=== PATIENT | female | born 1935 | race American Indian/Alaskan Native ===

== ENCOUNTER 2018-12-25 09:18 | Day surgery (SDC) | payer MEDICARE ==
--- NOTE | 2018-12-25 07:51 | Anesthesia Day of Surgery ---
Anesthesia Day of Surgery - Day of Surgery Patient Examined: Yes Patient H&P Reviewed: Yes Patient is NPO: Yes
--- NOTE | 2018-12-25 07:51 | Anesthesia Consultation ---
Anesthesia Consult and Med Hx Date of service: 12/25/18 - Pre-Operative Health Status ASA Pre-Surgery Classification: ASA4 Proposed Anesthetic Plan: MAC - Cardiovascular System Hx Hypertension: Yes Hx Coronary Artery Disease: Yes - Central Nervous System CVA: Yes
[~2018-12-25 09:18] MED LIST: NACL 0.9% 1000 ML 1,000 ML IV SCH
[2018-12-25] MEDS ORDERED: DIPRIVAN 10 MG/ML IV ONE ×2 (10:46)
--- NOTE | 2018-12-25 11:09 | Short Stay Summary ---
Short Stay Documentation Date of service: 12/25/18 Narrative H&P: Pt presents for surveillance colonoscopy. Pt with h/o colon polyps on colonoscopy over 5 years ago. no new gi complaints. - History H&P: obtained from office Past Medical History: other (CHF, HTN; rest per office note) Past Surgical History: Other (per office note) Social history: no significant social history - Allergies and Medications Current Medications: Allergies No Known Allergies Allergy (Verified 12/19/18 12:27) Home Medications Medication Instructions Recorded Confirmed Last Taken Type Allopurinol 100 mg PO DAILY 12/19/18 12/19/18 Unknown History Clopidogrel 75 mg PO DAILY 12/19/18 12/19/18 Unknown History Escitalopram Oxalate 20 mg PO DAILY 12/19/18 12/19/18 Unknown History Fish Oil 1 tab PO DAILY 12/19/18 12/19/18 Unknown History Furosemide 40 mg PO DAILY 12/19/18 12/19/18 Unknown History Lisinopril 2.5 mg PO DAILY 12/19/18 12/19/18 Unknown History Metoprolol 50 mg PO BID 12/19/18 12/19/18 Unknown History Nifedipine 60 mg PO DAILY 12/19/18 12/19/18 Unknown History Omeprazole 40 mg PO DAILY 12/19/18 12/19/18 Unknown History Vitamin D3 2,000 UNIT CAP 1 cap PO DAILY 12/19/18 12/19/18 Unknown History Active Medications Sodium Chloride (Nacl 0.9% 1000 Ml) 1,000 mls @ 50 mls/hr IV DIRECT CHANDRA Last Admin: 12/25/18 10:07 Dose: 50 mls/hr Documented by: - Physical exam General appearance: no acute distress Heart: Regular rate, Normal S1, Normal S2 Gastrointestinal: normal - Brief post op/procedure progress note Date of procedure: 12/25/18 Pre-op diagnosis: surveillance colonsocopy Post-op diagnosis: other (colon polyps x 2, diverticulosis) Procedure: colonoscopy with snare polypectomy Anesthesia: MAC Findings: 1. colon polyps x 2 2. diverticulosis Surgeon: YELITZA RAMIREZ Estimated blood loss: minimal Pathology: list (Jar A - descending colon polyps) Specimen disposition: to lab Condition: stable - Disposition Condition at discharge: Good Disposition: DC-01 TO HOME OR SELFCARE Short Stay Discharge Plan Follow up with: PEPE TOVAR MD [Primary Care Provider] - 7 Days
--- NOTE | 2018-12-25 11:11 | Operative Report ---
Operative Report Operative Report: Colonoscopy Procedure Note with Snare polypectomy Date of procedure: 12/25/2018 Endoscopist: Geoff Knowles Pre-op diagnosis: Personal history of colon polyps Post-op diagnosis: Colon polyps x 2, diverticulosis Anesthesia: MAC Complications: No immediate complications Estimated blood loss: minimal Procedure: After consent was obtained, the patient was placed in the left lateral decubitus position. The olympus colonoscope was inserted into the patient's rectum under direct vision, and advanced to the cecum without difficulty. The patient tolerated the procedure well. The views of the mucosa were fair/adequate. The quality of prep was fair. The patient's vital signs were monitored continuously throughout the procedure. Findings: There were two sessile polyps in the descending colon. Each polyp was ~3 mm in size. Both polyps were removed and retrieved with cold snare polypectomy. There were medium sized diverticula in the left side of the coon. Impression: 1. Colon polyps x 2 removed with snare polypectomy as above 2. Diverticulosis Recommendations: -follow-up pathology -high fiber diet daily -repeat colonoscopy for surveillance in 3-5 years depending on overall health -resume plavix tomorrow if no signs of bleeding
[2018-12-25 12:00] VITALS: BP 143/59
== END 2018-12-25 09:19 | disposition home or self-care (01) ==
LOC: GIO 09:18
PROVIDERS: ATTEND Internal Medicine Gastroenterology
DX: Z12.11 Encounter for screening for malignant neoplasm of colon (principal); D12.4 Benign neoplasm of descending colon; K57.30 Diverticulosis of large intestine without perforation or abscess without bleeding; E11.9 Type 2 diabetes mellitus without complications; I11.0 Hypertensive heart disease with heart failure; I50.9 Heart failure, unspecified; I25.10 Atherosclerotic heart disease of native coronary artery without angina pectoris; Z90.49 Acquired absence of other specified parts of digestive tract; Z98.890 Other specified postprocedural states; Z86.010 Personal history of colon polyps; Z79.899 Other long term (current) drug therapy; Z86.73 Personal history of transient ischemic attack (TIA), and cerebral infarction without residual deficits
CPT/HCPCS: 45385; 82962; 88305; J2704; J7030